=== PATIENT | male | born 1995 | race African-American/Black ===

== ENCOUNTER 2023-09-30 21:46 | Emergency (ER) | payer OTHER ==
[~2023-09-30] VITALS: Ht 182.9 cm; Wt 75.9 kg
[2023-09-30 21:59] VITALS: TEMP 98.2
[2023-09-30] MEDS ORDERED: Ketorolac 15 MG/ML VIAL IM ONE (22:30)
[2023-09-30 22:52] VITALS: BP 130/76; PULSE 68
== END 2023-09-30 22:52 | disposition home or self-care (01) ==
LOC: COL.ER 21:46
DX: M25.562 Pain in left knee (principal)
CPT/HCPCS: J1885